=== PATIENT | female | born 1950 | race Caucasian/White ===

== ENCOUNTER 2023-06-01 09:26 | Outpatient (RCR) | payer OTHER, SELFPAY | END 2023-06-01 23:59 | disposition home or self-care (01) | LOC: RST 09:26 | PROVIDERS: ATTENDING PHYSICIAN Physical Medicine & Rehabilitation; FAMILY PHYSICIAN Family Medicine | DX: R41.3 Other amnesia (principal); R41.841 Cognitive communication deficit; R47.89 Other speech disturbances; R41.840 Attention and concentration deficit; R26.2 Difficulty in walking, not elsewhere classified; S22.080D Wedge compression fracture of T11-T12 vertebra, subsequent encounter for fracture with routine healing; R29.6 Repeated falls | CPT/HCPCS: 97110; 97129; 97130; 97530; 97535 ==

== ENCOUNTER → 2023-06-08 15:52 | Outpatient (REF) | payer OTHER, SELFPAY | LOC: RAD 15:52 | PROVIDERS: ATTENDING PHYSICIAN Nurse Practitioner Adult Health; FAMILY PHYSICIAN Family Medicine | DX: R91.1 Solitary pulmonary nodule (principal); R04.2 Hemoptysis | CPT/HCPCS: 71250 ==

== ENCOUNTER → 2023-06-14 22:00 | Outpatient (REF) | payer OTHER, SELFPAY | LOC: DHSLP 22:00 | PROVIDERS: ATTENDING PHYSICIAN Internal Medicine; FAMILY PHYSICIAN Family Medicine | DX: G47.33 Obstructive sleep apnea (adult) (pediatric) (principal); G47.61 Periodic limb movement disorder | CPT/HCPCS: 95811 ==

== ENCOUNTER → 2024-04-18 14:48 | Outpatient (REF) | payer OTHER, SELFPAY | LOC: RAD 14:48 | PROVIDERS: ATTENDING PHYSICIAN Nurse Practitioner Family | DX: M25.562 Pain in left knee (principal); M25.551 Pain in right hip; M25.552 Pain in left hip; M25.561 Pain in right knee | CPT/HCPCS: 73522; 73564 ==

== ENCOUNTER → 2024-05-09 15:59 | Outpatient (REF) | payer OTHER, SELFPAY | LOC: RAD 15:59 | PROVIDERS: ATTENDING PHYSICIAN Physician Assistant Medical; FAMILY PHYSICIAN Family Medicine | DX: M54.32 Sciatica, left side (principal) | CPT/HCPCS: 72110 ==

== ENCOUNTER → 2024-05-23 14:54 | Outpatient (REF) | payer OTHER, SELFPAY | LOC: WDC 14:54 | PROVIDERS: ATTENDING PHYSICIAN Nurse Practitioner Family | DX: Z12.31 Encounter for screening mammogram for malignant neoplasm of breast (principal) | CPT/HCPCS: 77063; 77067 ==

== ENCOUNTER → 2024-08-19 08:39 | Outpatient (REF) | payer OTHER, SELFPAY | LOC: MRI 08:39 | PROVIDERS: ATTENDING PHYSICIAN Internal Medicine Gastroenterology; FAMILY PHYSICIAN Family Medicine | DX: K76.0 Fatty (change of) liver, not elsewhere classified (principal) | CPT/HCPCS: 74181; 76391 ==

== ENCOUNTER → 2024-10-17 08:12 | Outpatient (REF) | payer OTHER, SELFPAY | LOC: WOUND 08:12 | PROVIDERS: ATTENDING PHYSICIAN Surgery; FAMILY PHYSICIAN Family Medicine | DX: T25.321A Burn of third degree of right foot, initial encounter (principal); T65.891A Toxic effect of other specified substances, accidental (unintentional), initial encounter; G45.0 Vertebro-basilar artery syndrome; D83.9 Common variable immunodeficiency, unspecified; E11.9 Type 2 diabetes mellitus without complications; Z79.01 Long term (current) use of anticoagulants; Y92.009 Unspecified place in unspecified non-institutional (private) residence as the place of occurrence of the external cause; X08.8XXA Exposure to other specified smoke, fire and flames, initial encounter | CPT/HCPCS: 97597; 99204 ==

== ENCOUNTER 2024-10-27 06:11 | Emergency (ER) | payer OTHER, SELFPAY ==
[2024-10-27 06:16] VITALS: BP 153/62
[2024-10-27 06:26] VITALS: BMI 33.5
[2024-10-27 06:40] LABS: % Basophils 0.6 % (0-2); % Eosinophils 1.5 % (0-6); % Immature Granulocytes 0.6 % (0-0.5); % Lymphocytes 26.1 % (20.5-51.1); % Monocytes 8.2 % (1.7-9.3); Absolute Basophils 0.1 10^3/uL (0-0.2); Absolute Eosinophils 0.2 10^3/uL (0-0.7); Absolute Immature Granulocytes 0.1 10^3/uL (0-0.05); Absolute Lymphocytes 2.7 10^3/uL (1.2-3.4); Absolute Monocytes 0.8 10^3/uL (0.1-0.6); Absolute Neutrophils 6.4 10^3/uL (1.4-6.5); Hemoglobin 14.9 g/dL (12.0-16.0); Mean Corp Hgb Conc. 35.5 g/dL (33.0-37.0); Mean Corpuscular Hgb 30.3 pg (27.0-31.0); Mean Corpuscular Volume 85.5 fL (81.0-99.0); Nucleated Red Blood Cells % 0 %; Platelet Count 199 10^3/uL (130-400); Red Blood Cell Count 4.91 10^6/uL (4.20-5.40); Red Cell Dist. Width 13.1 % (11.5-14.5); White Blood Cell Count 10.2 10^3/uL (4.8-10.8)
[2024-10-27 07:00] VITALS: BP 133/59
[2024-10-27 07:23] LABS: Blood Urea Nitrogen 17 mg/dl (7-17); Carbon Dioxide 20 mmol/L (22-30); Chloride 110 mmol/L (98-107); Estimated Creatinine Clearance 67 ml/min; Glucose 94 mg/dl (70-99); Sodium 141 mmol/L (135-145); eGFR > 60.00
[2024-10-27 07:25] LABS: NT-proBNP 87.9 pg/ml; Troponin I < 0.012 ng/ml
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
[2024-10-27 08:00] VITALS: BP 134/62
[2024-10-27 09:09] VITALS: BP 155/56
[2024-10-27 10:00] VITALS: BP 136/56
[2024-10-27] MEDS: DELTASONE 40 MG PO (11:04)
== END 2024-10-27 11:25 | disposition home or self-care (01) ==
LOC: EMR 06:11
PROVIDERS: EMERGENCY PHYSICIAN Emergency Medicine; FAMILY PHYSICIAN Family Medicine
DX: R05.9 Cough, unspecified (principal); R06.02 Shortness of breath; I77.1 Stricture of artery; I10 Essential (primary) hypertension; G47.33 Obstructive sleep apnea (adult) (pediatric); E78.00 Pure hypercholesterolemia, unspecified; D89.9 Disorder involving the immune mechanism, unspecified; Z79.02 Long term (current) use of antithrombotics/antiplatelets; Z79.899 Other long term (current) drug therapy; Z79.82 Long term (current) use of aspirin; E11.36 Type 2 diabetes mellitus with diabetic cataract; K21.9 Gastro-esophageal reflux disease without esophagitis; Z85.828 Personal history of other malignant neoplasm of skin
CPT/HCPCS: 99285; 71046; 71275; 80048; 83880; 84484; 85025; 93005; Q9967

== ENCOUNTER → 2024-11-07 14:42 | Outpatient (REF) | payer OTHER, SELFPAY | LOC: WOUND 14:42 | PROVIDERS: ATTENDING PHYSICIAN Surgery; FAMILY PHYSICIAN Family Medicine | DX: T25.321A Burn of third degree of right foot, initial encounter (principal); G45.0 Vertebro-basilar artery syndrome; D83.9 Common variable immunodeficiency, unspecified; E11.9 Type 2 diabetes mellitus without complications; Z79.01 Long term (current) use of anticoagulants; T65.891A Toxic effect of other specified substances, accidental (unintentional), initial encounter | CPT/HCPCS: 99213 ==

== ENCOUNTER → 2024-11-21 10:36 | Outpatient (REF) | payer OTHER, SELFPAY | LOC: WOUND 10:36 | PROVIDERS: ATTENDING PHYSICIAN Surgery; FAMILY PHYSICIAN Family Medicine | DX: T25.321A Burn of third degree of right foot, initial encounter (principal); G45.0 Vertebro-basilar artery syndrome; D83.9 Common variable immunodeficiency, unspecified; E11.9 Type 2 diabetes mellitus without complications; Z79.01 Long term (current) use of anticoagulants; T65.891A Toxic effect of other specified substances, accidental (unintentional), initial encounter | CPT/HCPCS: 99213 ==

== ENCOUNTER → 2024-12-09 14:12 | Outpatient (REF) | payer OTHER, SELFPAY | LOC: WOUND 14:12 | PROVIDERS: ATTENDING PHYSICIAN Surgery; FAMILY PHYSICIAN Family Medicine | DX: T25.321A Burn of third degree of right foot, initial encounter (principal); G45.0 Vertebro-basilar artery syndrome; D83.9 Common variable immunodeficiency, unspecified; E11.9 Type 2 diabetes mellitus without complications; Z79.01 Long term (current) use of anticoagulants; T65.891A Toxic effect of other specified substances, accidental (unintentional), initial encounter | CPT/HCPCS: 99212 ==

== ENCOUNTER → 2024-12-25 14:19 | Outpatient (REF) | payer OTHER, SELFPAY | LOC: RAD 14:19 | PROVIDERS: ATTENDING PHYSICIAN Family Medicine | DX: R91.8 Other nonspecific abnormal finding of lung field (principal) | CPT/HCPCS: 71260; Q9967 ==